=== PATIENT | female | born 1965 | race Caucasian/White ===

== ENCOUNTER 2023-03-14 11:57 | Outpatient (CLI) | payer OTHER | END 2023-03-14 11:58 | disposition home or self-care (01) | LOC: CSHRAD 11:57 | PROVIDERS: ATTEND Physician Assistant | DX: M54.2 Cervicalgia (principal); M25.511 Pain in right shoulder; M47.812 Spondylosis without myelopathy or radiculopathy, cervical region | CPT/HCPCS: 72040 ==

== ENCOUNTER 2023-08-19 11:54 | Outpatient (CLI) | payer OTHER ==
[~2023-08-19 11:54] MED LIST: Magnevist 469MG/ML 20 ML VIAL ONE
== END 2023-08-19 11:55 | disposition home or self-care (01) ==
LOC: CSHMRI 11:54
PROVIDERS: ATTEND Psychiatry & Neurology Neurology
DX: R42 Dizziness and giddiness (principal); R90.82 White matter disease, unspecified; J34.1 Cyst and mucocele of nose and nasal sinus
CPT/HCPCS: 70544; 70549; 70553; A9579